=== PATIENT | male | born 1935 | race Caucasian/White ===

== ENCOUNTER 2023-01-05 10:03 | Outpatient (CLI) | payer MEDICARE | END 2023-01-05 10:04 | disposition home or self-care (01) | LOC: TBSIIMAG 10:03 | PROVIDERS: ATTEND Physician Assistant | DX: S32.010A Wedge compression fracture of first lumbar vertebra, initial encounter for closed fracture (principal); S32.040A Wedge compression fracture of fourth lumbar vertebra, initial encounter for closed fracture; M41.86 Other forms of scoliosis, lumbar region | CPT/HCPCS: 72100 ==

== ENCOUNTER 2023-02-11 10:44 | Outpatient (CLI) | payer MEDICARE | END 2023-02-11 10:45 | disposition home or self-care (01) | LOC: RAD 10:44 | PROVIDERS: ATTEND Physician Assistant | DX: S32.019A Unspecified fracture of first lumbar vertebra, initial encounter for closed fracture (principal); S32.049A Unspecified fracture of fourth lumbar vertebra, initial encounter for closed fracture; M47.816 Spondylosis without myelopathy or radiculopathy, lumbar region; M43.9 Deforming dorsopathy, unspecified | CPT/HCPCS: 72100 ==

== ENCOUNTER 2023-02-13 11:14 | Outpatient (CLI) | payer OTHER | END 2023-02-13 11:15 | disposition home or self-care (01) | LOC: MRI 11:14 | PROVIDERS: ATTEND Neurological Surgery | DX: M54.50 Low back pain, unspecified (principal); M47.816 Spondylosis without myelopathy or radiculopathy, lumbar region; M47.815 Spondylosis without myelopathy or radiculopathy, thoracolumbar region; M47.817 Spondylosis without myelopathy or radiculopathy, lumbosacral region | CPT/HCPCS: 72148 ==